=== PATIENT | female | born 1975 | race Two or more races ===

== ENCOUNTER → 2018-12-15 | Outpatient (CLI) | payer BC | LOC: BMCIMAGING 10:51 | PROVIDERS: ATTEND Podiatrist Foot & Ankle Surgery | DX: M79.671 Pain in right foot (principal) ==

== ENCOUNTER 2019-01-12 12:59 | Emergency (ER) | payer BC ==
--- NOTE | 2019-01-12 13:16 | EDPHY ---
H & P Stated Complaint: syncopal episode while seated. Gave blood 30 minutes prior Time Seen by Provider: 01/12/19 13:05 HPI/ROS: CHIEF COMPLAINT: Near-syncope while receiving massage HISTORY OF PRESENT ILLNESS: 43-year-old female generally healthy, no history of cardiac disease, was getting a chair massage hold foods, had only had her thoracic and lumbar spine massage with no anterior posterior cervical massage or manipulation, started to feel hot, lightheaded, diaphoretic when her face was in the doughnut pillow.. She was given water. She did not have syncopal episode. She did not fall. EMS was summoned. She did eat lunch prior to this and did donate blood this morning. EMS fingerstick blood sugar was 133. At the time I examine her she has no complaints of pain or discomfort. PRIMARY CARE PROVIDER: REVIEW OF SYSTEMS: 10 systems reviewed and negative with the exception of the elements mentioned in the history of present illness PAST MEDICAL & SURGICAL HISTORY: No pertinent medical or surgical history SOCIAL HISTORY: Nonsmoker PHYSICAL EXAM (Prior to examination, patient consented to physical exam, hands were washed and my usual and customary physical exam procedures followed) 1) GENERAL: Well-developed, well-nourished, alert and oriented. Appears to be in no acute distress. 2) HEAD: Normocephalic, atraumatic 3) HEENT: Pupils equal, round, reactive to light bilaterally. Sclera anicteric. Nasopharynx, oropharynx, clear, no lesions. Moist Mucous membranes. No evidence of tongue trauma Ears bilaterally with normal tympanic membranes. 4) NECK: Full range of motion, no meningeal signs. No carotid bruit 5) LUNGS: Clear auscultation bilaterally, no wheezes, no rhonchi, no retractions. 6) HEART: Regular rate and rhythm, no murmur, no heave, no gallop. 7) ABDOMEN: No guarding, no rebound, no focal tenderness, negative McBurney's, negative Cowart's, negative Rovsing's, negative peritoneal sign, 8) MUSCULOSKELETAL: Moving all extremities, no focal areas of tenderness, no obvious trauma. No peripheral edema or discoloration. 9) BACK: No CVA tenderness, no midline vertebral tenderness, no fluctuance, no step-off, no obvious trauma, no visual or palpable abnormality. 10) SKIN: No rash, no petechiae. 11) Psychiatric: Patient is oriented X 3, there is no agitation. DIFFERENTIAL DIAGNOSIS: In no particular order including but not limited to anxiety, vertebral vessel dissection, vagal stimulation from massage - Personal History LMP (Females 10-55): IUD In Place Current Tetanus Diphtheria and Acellular Pertussis (TDAP): Yes - Medical/Surgical History Hx Asthma: No Hx Chronic Respiratory Disease: No Hx Diabetes: No Hx Cardiac Disease: No Hx Renal Disease: No Hx Cirrhosis: No Hx Alcoholism: No Hx HIV/AIDS: No Hx Splenectomy or Spleen Trauma: No Other PMH: none - Social History Smoking Status: Never smoked Constitutional: Initial Vital Signs Temperature (C) 36.8 C 01/12/19 13:06 Heart Rate 68 01/12/19 13:06 Respiratory Rate 16 01/12/19 13:06 Blood Pressure 109/83 H 01/12/19 13:06 O2 Sat (%) 97 01/12/19 13:06 O2 Delivery Mode Room Air Allergies/Adverse Reactions: No Known Allergies Allergy (Verified 01/12/19 13:05) Home Medications: Medication Instructions Recorded FLUoxetine 01/12/19 Medrol Dose Ricardo 01/12/19 busPIRone 01/12/19 Medical Decision Making ED Course/Re-evaluation: 2:50 p.m.: Re-evaluation. Patient resting comfortably. Discussed the patient her diagnostic results. I recommend follow-up. Doubt cervico-cranial vessel dissection in the absence of neck manipulation or trauma. I do not think that CT angiography indicated at this time. She is noted to have white blood cell count 58046 with no complaints of pain or discomfort, no recent illness. She did donate blood this morning. This will need to be rechecked by primary care provider. I have given this referral information. Patient feels comfortable being discharged. She remains with a nonfocal exam. Patient feels comfortable being discharged. All questions and concerns addressed by myself. Patient given my usual and customary discharge precautions and instructions regarding their clinical impression. Care of patient under supervision of secondary supervising physician Dr Roman with whom I discussed case. - Data Points Laboratory Results: Laboratory Results 01/12/19 13:05 01/12/19 13:05 01/12/19 01/12/19 01/12/19 13:05 13:05 13:05 WBC 21.96 10^3/uL H 10^3/uL (3.80-9.50) RBC 4.14 10^6/uL L 10^6/uL (4.18-5.33) Hgb 12.6 g/dL g/dL (12.6-16.3) Hct 38.1 % % (38.0-47.0) MCV 92.0 fL fL (81.5-99.8) MCH 30.4 pg pg (27.9-34.1) MCHC 33.1 g/dL g/dL (32.4-36.7) RDW 12.6 % % (11.5-15.2) Plt Count 424 10^3/uL H 10^3/uL (150-400) MPV 10.8 fL fL (8.7-11.7) Neut % (Auto) 72.5 % % (39.3-74.2) Lymph % (Auto) 18.7 % % (15.0-45.0) Shelby % (Auto) 7.7 % % (4.5-13.0) Eos % (Auto) 0.4 % L % (0.6-7.6) Baso % (Auto) 0.2 % L % (0.3-1.7) Nucleat RBC Rel Count 0.0 % % (0.0-0.2) Absolute Neuts (auto) 15.92 10^3/uL H 10^3/uL (1.70-6.50) Absolute Lymphs (auto) 4.11 10^3/uL H 10^3/uL (1.00-3.00) Absolute Monos (auto) 1.69 10^3/uL H 10^3/uL (0.30-0.80) Absolute Eos (auto) 0.09 10^3/uL 10^3/uL (0.03-0.40) Absolute Basos (auto) 0.04 10^3/uL 10^3/uL (0.02-0.10) Absolute Nucleated RBC 0.00 10^3/uL 10^3/uL (0-0.01) Immature Gran % 0.5 % % (0.0-1.1) Immature Gran # 0.11 10^3/uL H 10^3/uL (0.00-0.10) RBC/WBC/PLT Morphology TNP Platelet Estimate TNP Sodium 138 mEq/L mEq/L (135-145) Potassium 4.1 mEq/L mEq/L (3.5-5.2) Chloride 102 mEq/L mEq/L (97-110) Carbon Dioxide 23 mEq/l mEq/l (22-31) Anion Gap 13 mEq/L mEq/L (6-14) BUN 19 mg/dL mg/dL (7-23) Creatinine 0.9 mg/dL mg/dL (0.6-1.0) Estimated GFR > 60 Glucose 89 mg/dL mg/dL (70-100) Calcium 9.6 mg/dL mg/dL (8.5-10.4) Beta HCG, Qual NEGATIVE Departure - Departure Disposition: Home, Routine, Self-Care Clinical Impression: Syncope, near Condition: Good Instructions: Near Syncope (ED) Additional Instructions: If you develop chest pain, shortness of breath, or any other symptoms, return to the ER immediately for re-evaluation Referrals: Josselin Medeiros MD [Medical Doctor] - 2-3 days, call for appt.
[2019-01-12 13:32] LABS: PLATELET COUNT 424 10^3/uL (150-400)
[2019-01-12 15:23] VITALS: BP 107/74
--- NOTE | 2019-01-14 07:56 | CPEKG ---
Test Reason : OPEN Blood Pressure : / mmHG Vent. Rate : 067 BPM Atrial Rate : 066 BPM P-R Int : 155 ms QRS Dur : 086 ms QT Int : 440 ms P-R-T Axes : 056 -23 054 degrees QTc Int : 465 ms Sinus rhythm Borderline left axis deviation Confirmed by Juarez Carranza ([id number]) on 01/14/2019 7:55:11 AM Referred By: Juarez Carranza Confirmed By:Juarez Carranza
== END 2019-01-12 15:23 | disposition home or self-care (01) ==
LOC: EDUNIT#
DX: R55 Syncope and collapse (principal)